=== PATIENT | female | born 1965 ===

== ENCOUNTER 2020-09-17 08:48 | Outpatient (CLI) | payer OTHER ==
[~2020-09-17 08:48] MED LIST: CIPRO500 MG PO; ULTRAM50 MG PO; URIN D.S. TABLE1 TAB PO
== END 2020-09-17 08:50 | disposition home or self-care (01) ==
LOC: RX STUDY 08:48
PROVIDERS: ATTEND Internal Medicine Gastroenterology
DX: K44.9 Diaphragmatic hernia without obstruction or gangrene (principal); R13.0 Aphagia